=== PATIENT | male | born 1975 | race Caucasian/White ===

== ENCOUNTER 2017-10-13 14:36 | Emergency (ER) | payer OTHER ==
[2017-10-13 14:36] VITALS: BMI 38.3
[2017-10-13 15:06] VITALS: RESP 18; TEMP 97.8
[2017-10-13] MEDS ORDERED: Sodium Chloride 0.9% 1,000 ML IV STA (15:07)
--- NOTE | 2017-10-13 15:16 | ED PDOC ---
Arrival/HPI - General Chief Complaint: Dizziness/Lightheaded Time Seen by Provider: 10/13/17 14:57 Historian: Patient - History of Present Illness Narrative History of Present Illness (Text): 10/13/17 15:10 pt p/w + since 12:30-1245pm today, just after a service at the [employer], pt began to felt body fatigue/weakness, global lightheadedness, + diffuse body numbness/ tingling; pt states he just felt like he ran a marathon and his body is fatigued but no focal weakness; pt states no fever/chills/sweats, no cp/sob/ palpitations, no abd pain, no n/v, no urinary/bowel changes, no incontinence, no fall/trauma/sick contact, no travel. pt denied welch, vision changes, facial sensation changes, slurr speech, gait changes. pt denied other complaints pt is here for further eval. pt states he was fasting for [employer] service today but with the above symptoms, he broke his fasting and he drank some red-bull and ate some food PCP: NONE pt is writes with right hand, but is able to perform chores with his left hand Family Hx: unremarkable (no early onset [place]/CVA) Time/Duration: Prior to Arrival Symptom Onset: Sudden Symptom Course: Unchanged Activities at Onset: Other (while at [employer] attending service) Context: Home Past Medical History - Provider Review Nursing Documentation Reviewed: Yes - Travel History Have you recently traveled outside [place] w/in the past 3 mons?: No - Past History Past History: No Previous - Infectious Disease Hx of Infectious Diseases: None - Tetanus Immunization Tetanus Immunization: Unknown - Psychiatric Hx Depression: No Hx Emotional Abuse: No Hx Physical Abuse: No Hx Substance Use: No - Past Surgical History Past Surgical History: No Previous - Anesthesia Hx Anesthesia: No - Suicidal Assessment Feels Threatened In Home Enviroment: No Family/Social History - Physician Review Nursing Documentation Reviewed: Yes Family/Social History: No Known Family HX Smoking Status: Never Smoked Hx Alcohol Use: No Hx Substance Use: No Hx Substance Use Treatment: No Allergies/Home Meds Allergies/Adverse Reactions: Allergies No Known Allergies Allergy (Verified 10/13/17 15:03) Review of Systems - Review of Systems Constitutional: Normal Eyes: Normal. absent: Vision Changes, Photophobia, Eye Pain ENT: Normal Respiratory: Normal. absent: SOB Cardiovascular: Normal. absent: Chest Pain Gastrointestinal: Normal. absent: Abdominal Pain Genitourinary Male: Normal Musculoskeletal: Normal Skin: Normal Neurological: Dizziness, Other (lightheadedness; diffuse body numbness/tingling) . absent: Focal Weakness, Gait Changes, Speech Changes, Facial Droop, Disequilibrium Endocrine: Normal Hemo/Lymphatic: Normal Psychiatric: Normal Physical Exam - Physical Exam Narrative Physical Exam (Text): 10/13/17 15:15 General: alert/awake, GCS = 15, oriented x 3, resting in bed, mildly uncomfortable, cooperative, interactive; NAD Head: NC/AT EYE: PERRLA, EOMI, sclera anicteric, no nystagmus, no photophobia; visual field intact b/l Facial: WNL Oral: uvula/tongue are midline, no exudate/lesions, no drooling/stridor, no dysphonia; intact dentitions; moist oral mucosa NECK: intact ROM, no midline tenderness, no nuchal rigidity, no meningeal signs ; no step off Chest: CTA b/l, no w/r/r; no tachypenia, no accessory muscle use noted Chest Wall: no crepitus, no lesions, no gross deformities, no focal tenderness Cardiac: +S1, +S2, no m/r/r, no tachycardia Abdominal: +BS, soft/nd/nt, well nourished patient; no masses/rebound/guarding/ rigidity; no harrington's sign, no mcburney's point tenderness Extremities: intact ROM, strength 5/5 grossly intact in all limbs, neurovasc intact b/l; + ambulatory; reflex +2/2; no pitting edema/swelling noted b/l, no devan's sign b/l BACK: no step off, no midline tenderness, NO crepitus, no gross deformities noted; Intact ROM SKIN: cap refill < 1 sec, no ulcerations, no petechiae, no rashes; no gross pallor noted NEURO: CNII-XII WNL, no facial asymmetries, no slurr speech, oriented x 3 NIH stroke scale ~ 0 Psych: normal insight, normal affect; follows command with ease Vital Signs Reviewed: Yes Vital Signs Temp Pulse Resp BP Pulse Ox 10/13/17 17:08 68 18 115/72 98 10/13/17 15:03 97.8 F 80 18 145/86 97 Temperature: Afebrile Blood Pressure: Hypertensive Pulse: Regular Respiratory Rate: Normal Appearance: Positive for: Well-Appearing, Non-Toxic, Comfortable. No: Ill- Appearing, Unkept Pain Distress: None Mental Status: Positive for: Alert and Oriented X 3 - Systems Exam Head: Present: Atraumatic, Normocephalic Medical Decision Making ED Course and Treatment: 10/13/17 15:15 Impression: lightheadedness/numbness/tingling i have consider all the differential diagnosis regarding pt's chief medical complaints/clinical findings, including but are not limited to: lightheadedness/ numbness/tingling A/P: lightheadedness/numbness/tingling - ct - labs - xray - iv - supportive care - observe/reevaluation 10/13/17 17:25 pt is doing well pt states his symptoms subsided NIH stroke scale: 0 vital signs remained stable pt is made aware of his medical results pt is encouraged fluid hydration pt will f/u as directed pt will be discharged home Re-evaluation Time: 17:39 Reassessment Condition: Improved - Lab Interpretations Lab Results: 10/13/17 15:45 10/13/17 15:45 Lab Results 10/13/17 17:00: Urine Color Yellow, Urine Appearance Clear, Urine pH 6.0, Ur Specific [place] 1.015, Urine Protein Negative, Urine Glucose (UA) Negative, Urine Ketones Negative, Urine Blood Negative, Urine Nitrate Negative, Urine Bilirubin Negative, Urine Urobilinogen 0.2, Ur Leukocyte Esterase Negative 10/13/17 15:45: TSH 3rd Generation 1.82 10/13/17 15:45: Sodium 143, Potassium 3.7, Chloride 106, Carbon Dioxide 25, Anion Gap 16, BUN 14, Creatinine 1.0, Est GFR ( Amer) > 60, Est GFR (Non- Af Amer) > 60, Random Glucose 121 H, Calcium 9.6, Total Bilirubin 0.4, AST 30, ALT 68 H, Alkaline Phosphatase 99, Total Creatine Kinase 383 H, CK-MB (CK-2) 1.1 , CK-MB (CK-2) % Cancelled, Total Protein 8.0, Albumin 4.5, Globulin 3.5, Albumin/Globulin Ratio 1.3, Lipase 74 10/13/17 15:45: WBC 12.1 H, RBC 4.91, Hgb 14.5, Hct 42.3, MCV 86.2, MCH 29.5, MCHC 34.3, RDW 13.1, Plt Count 260, MPV 10.5, Gran % 71.3 H, Lymph % (Auto) 22.5 , [place] % (Auto) 5.4, Eos % (Auto) 0.6 L, Baso % (Auto) 0.2, Gran # 8.64 H, Lymph # (Auto) 2.7, [place] # (Auto) 0.7 H, Eos # (Auto) 0.1, Baso # (Auto) 0.03 I have reviewed the lab results: Yes Interpretation: Abnormal lab values (mildly elevated CK) - RAD Interpretation Narrative RAD Interpretations (Text): 10/13/17 17:14 HISTORY: Dizziness/lightheadedness/numbness/tingling COMPARISON: No prior. TECHNIQUE: Chest PA and lateral FINDINGS: LUNGS: No active pulmonary disease. PLEURA: No significant pleural effusion identified. No pneumothorax apparent. CARDIOVASCULAR: Normal. OSSEOUS STRUCTURES: Mild multilevel degenerative spondylosis of the thoracic spine. Minor chronic anterior stature loss of several upper/ mid thoracic segments felt to be degenerative in origin. TheNo significant abnormalities. VISUALIZED UPPER ABDOMEN: Normal. OTHER FINDINGS: None. IMPRESSION: No active disease. - PROCEDURE: CT HEAD WITHOUT CONTRAST. HISTORY: lLightheadedness, diffuse numbness/tingling COMPARISON: None available. TECHNIQUE: Axial computed tomography images were obtained through the head/brain without intravenous contrast. Radiation dose: Total exam DLP = 846.02 mGy-cm. This CT exam was performed using one or more of the following dose reduction techniques: Automated exposure control, adjustment of the mA and/or kV according to patient size, and/or use of iterative reconstruction technique. The the the the FINDINGS: HEMORRHAGE: No intracranial hemorrhage. BRAIN: No mass effect or edema. No atrophy or chronic microvascular ischemic changes. VENTRICLES: Unremarkable. No hydrocephalus. CALVARIUM: Unremarkable. PARANASAL SINUSES: Minor no mucosal thickening seen within the right and left maxillary antra as well as a few ethmoid air cells. MASTOID AIR CELLS: Unremarkable as visualized. No inflammatory changes. OTHER FINDINGS: Orbits and contents unremarkable. IMPRESSION: Normal CT of the Head. Radiology Orders: 10/13/17 15:05 HEAD W/O CONTRAST [CT] Stat 10/13/17 15:37 CHEST TWO VIEWS (PA/LAT) [RAD] Stat Armhole Baster Hand: Radiologist - EKG Interpretation EKG Interpretation (Text): 10/13/17 15:28 NSR at 80 bpm, normal axis, no ectopy, incomplete RBBB, inverted T in leads III , no st changes, BORDERLINE EKG; no old ekg to compare with Interpreted by ED Physician: Yes Type: 12 lead EKG Comparison: No previous EKG avail. - Medication Orders Current Medication Orders: Discontinued Medications Aspirin (Aspirin) 325 mg PO STAT STA Stop: 10/13/17 15:07 Last Admin: 10/13/17 15:20 Dose: 325 mg Sodium Chloride (Sodium Chloride 0.9%) 1,000 mls @ 999 mls/hr IV .Q1H1M STA Stop: 10/13/17 16:07 Last Admin: 10/13/17 15:28 Dose: 999 mls/hr eMAR Start Stop Document 10/13/17 15:28 (Rec: 10/13/17 15:28 [id number]) Intravenous Solution Start Date 10/13/17 Start Time 15:28 Meclizine HCl (Antivert) 25 mg PO STAT STA Stop: 10/13/17 15:07 Last Admin: 10/13/17 15:20 Dose: 25 mg Metoclopramide HCl (Reglan) 10 mg IVP STAT STA Stop: 10/13/17 15:07 Last Admin: 10/13/17 15:20 Dose: 10 mg IVP Administration Document 10/13/17 15:20 (Rec: 10/13/17 15:28 [id number]) Charges for Administration # of IVP Administrations 1 NIHSS Stroke Scale 3 - Date/Time Evaluation Performed Date Performed: 10/13/17 Time Performed: 15:10 When Was NIHSS Performed: Baseline - How Severe is the Stroke Level of Consciousness: 0=Alert LOC to Questions: 0=Both comments correct LOC to commands: 0=Obeys both correctly Best Gaze: 0=Normal Visual: 0=No visual loss Facial: 0=Normal Motor Arm - Left: 0=No drift Motor Arm - Right: 0=No drift Motor Leg - Left: 0=No drift Motor Leg - Right: 0=No drift Limb Ataxia: 0=Absent Sensory: 0=Normal Best Language: 0=No aphasia Dysarthia: 0=Normal articulation Extinction & Inattention (Neglect): 0=Normal, no object Score: 0 Disposition/Present on Arrival - Present on Arrival Any Indicators Present on Arrival: No History of DVT/PE: No History of Uncontrolled Diabetes: No Urinary Catheter: No History of Decub. Ulcer: No History Surgical Site Infection Following: None - Disposition Have Diagnosis and Disposition been Completed?: Yes Diagnosis: Lightheadedness Disposition: HOME/ ROUTINE Disposition Time: 17:39 Patient Plan: Discharge Patient Problems: Current Active Problems Problem Status Onset Lightheadedness Acute Condition: STABLE Discharge Instructions (ExitCare): Dizziness, Nonvertigo, (DC) Print Language: MALAWIAN Additional Instructions: Make sure to see your doctor in 1-2 days DRINK PLENTY OF FLUIDS take your medications as prescribed RETURN TO ED IF worse pain, cant breath, persistent vomiting, high fever >101- 102 for hours, altered behavior, slurr speech, facial changes, focal weakness ( arm/leg or both), unable to urinate, heavy/persistent bleeding, passing out, chest pain, or other medical emergencies Prescriptions: Meclizine [Meclizine*] 25 mg PO Q6 PRN #30 tab PRN Reason: Dizziness Metoclopramide [Reglan] 10 mg PO TID PRN #20 tab PRN Reason: Nausea/Vomiting Referrals: PCP,SHANNON [Primary Care Provider] - Follow up with primary Mario Sagastume MD [Staff Provider] - Follow up with primary Jc Joiner MD [Staff Provider] - Follow up with primary [email or web address] [place] [Outside] - Follow up with primary [facility] [Outside] - Follow up with primary [facility] [place] [Outside] - Follow up with primary Forms: [email or web address] ([place]), WORK NOTE
[2017-10-13 15:53] LABS: BASO # 0.03 K/mm3 (0.0-2.0); BASO % 0.2 % (0.0-3.0); EOS # 0.1 (0.0-0.7); EOS % 0.6 % (1.5-5.0); GRAN # 8.64 (1.4-6.5); GRAN % 71.3 % (50.0-68.0); HEMOGLOBIN 14.5 g/dL (14.0-18.0); LYMPH # 2.7 (1.2-3.4); LYMPH % 22.5 % (22.0-35.0); MEAN CELL VOLUME 86.2 fl (80.0-105.0); MEAN CORPUSCULAR HEMOGLOBIN 29.5 pg (25.0-35.0); MEAN CORPUSCULAR HGB CONC 34.3 g/dl (31.0-37.0); MEAN PLATELET VOLUME 10.5 fl (7.0-11.0); MONO # 0.7 (0.1-0.6); MONO % 5.4 % (1.0-6.0); RBC 4.91 10^6/uL (3.5-6.1); RED CELL DISTRIBUTION WIDTH 13.1 % (11.5-14.5); WHITE BLOOD COUNT 12.1 10^3/ul (4.5-11.0)
[2017-10-13 16:07] LABS: ALB/GLOB RATIO 1.3 (1.1-1.8); ALBUMIN 4.5 g/dL (3.0-4.8); ALT/SGPT 68 U/L (7-56); AST/SGOT 30 U/L (17-59); BLOOD UREA NITROGEN 14 mg/dL (7-21); CALCIUM 9.6 mg/dL (8.4-10.5); GFR AFRICAN-AMERICAN > 60; GFR NON-AFRICAN AMERICAN > 60; LIPASE 74 U/L (23-300)
[2017-10-13 16:28] LABS: CK-MB 1.1 ng/mL (0.0-3.6)
--- NOTE | 2017-10-13 16:38 | CT ---
PROCEDURE: CT HEAD WITHOUT CONTRAST. HISTORY: lLightheadedness, diffuse numbness/tingling COMPARISON: None available. TECHNIQUE: Axial computed tomography images were obtained through the head/brain without intravenous contrast. Radiation dose: Total exam DLP = 846.02 mGy-cm. This CT exam was performed using one or more of the following dose reduction techniques: Automated exposure control, adjustment of the mA and/or kV according to patient size, and/or use of iterative reconstruction technique. The the the the FINDINGS: HEMORRHAGE: No intracranial hemorrhage. BRAIN: No mass effect or edema. No atrophy or chronic microvascular ischemic changes. VENTRICLES: Unremarkable. No hydrocephalus. CALVARIUM: Unremarkable. PARANASAL SINUSES: Minor no mucosal thickening seen within the right and left maxillary antra as well as a few ethmoid air cells. MASTOID AIR CELLS: Unremarkable as visualized. No inflammatory changes. OTHER FINDINGS: Orbits and contents unremarkable. IMPRESSION: Normal CT of the Head.
--- NOTE | 2017-10-13 17:05 | RAD ---
HISTORY: Dizziness/lightheadedness/numbness/tingling COMPARISON: No prior. TECHNIQUE: Chest PA and lateral FINDINGS: LUNGS: No active pulmonary disease. PLEURA: No significant pleural effusion identified. No pneumothorax apparent. CARDIOVASCULAR: Normal. OSSEOUS STRUCTURES: Mild multilevel degenerative spondylosis of the thoracic spine. Minor chronic anterior stature loss of several upper/ mid thoracic segments felt to be degenerative in origin. TheNo significant abnormalities. VISUALIZED UPPER ABDOMEN: Normal. OTHER FINDINGS: None. IMPRESSION: No active disease.
[2017-10-13 17:16] LABS: URINE APPEARANCE CLEAR (CLEAR); URINE BILIRUBIN NEGATIVE (NEGATIVE); URINE BLOOD NEGATIVE (NEGATIVE); URINE COLOR YELLOW (YELLOW); URINE GLUCOSE (UA) NEGATIVE (NEGATIVE); URINE LEUKOCYTE ESTERASE NEGATIVE Leu/uL (NEGATIVE); URINE PROTEIN NEGATIVE mg/dL (<30 mg/dL); URINE UROBILINOGEN 0.2 E.U./dL (<1 E.U./dL)
[2017-10-13 18:02] VITALS: BP 133/71; PULSE 67; O2SAT 96
--- NOTE | 2017-10-14 23:01 | CARD ---
APPROVED REPORT EKG Measurement Heart [id number] <Conclusion> Normal sinus rhythm Incomplete right bundle branch block Borderline ECG
== END 2017-10-13 18:00 | disposition home or self-care (01) ==
LOC: ED 14:36
DX: R42 Dizziness and giddiness (principal)
CPT/HCPCS: 70450; 71046; 80053; 81003; 82550; 82553; 83690; 84443; 85025; 93005; 96374; 99285; J2765; J7030